=== PATIENT | male | born 1955 | race Caucasian/White ===

== ENCOUNTER → 2017-04-01 | Outpatient (CLI) | payer OTHER ==
[2015-01-11 17:21] VITALS: BP 141/91
--- NOTE | 2017-04-01 11:14 | RAD ---
HISTORY: Shortness of breath Study: PA and lateral chest Comparison: January 11, 2015 Findings: The trachea is midline. The cardiac silhouette is normal with a mildly tortuous aorta.. There are m inimally increased diffuse interstitial lung markings. There is no edema or effusion.. The bony thor ax is unremarkable. IMPRESSION: 1. No acute cardiopulmonary disease. Reported By:
== END ==
LOC: RAD 10:28
PROVIDERS: ATTEND Nurse Practitioner Family
DX: R06.02 Shortness of breath (principal)
CPT/HCPCS: 71020